=== PATIENT | male | born 1990 | race Caucasian/White ===

== ENCOUNTER 2017-08-04 08:31 | Emergency (ER) | payer BC ==
[2017-08-04 08:38] VITALS: O2SAT 90
[2017-08-04] MEDS ORDERED: IPRATROPIUM/ALBUTEROL 3 ML DEYVIAL IH ONE ×2 (08:44→08:49)
--- NOTE | 2017-08-04 08:47 | EDPHY ---
H & P Stated Complaint: Sob since this am Time Seen by Provider: 08/04/17 08:46 HPI/ROS: HPI: This is a 27-year-old male presents with Chief Complaint: Sob since this am Location: Chest Quality: Dyspnea Duration: 1-3 hours prior to arrival Signs and Symptoms: No fever, no cough, + wheezing, no chest pain, no lower extremity edema, no palpitations, no sore throat, no body aches Timing: rapid onset Severity: moderate Context: Patient does not have official diagnosis of asthma but does use an albuterol inhaler approximately 3-4 times per month presents with complaints of rapid onset of shortness of breath that worsened while out work this morning. He reports that he believes that he is allergic to hemp and he works at a [employer]. Complains of not being able to catch his breath and wheezing. Denies any fever, chills, cough, body aches, chest pain, lower extremity edema. + tobacco user. Patient ran out of his inhaler several weeks ago. No PCP. Denies any upper respiratory symptoms. Modifying Factors: None Comment: ROS: see HPI Constitutional: No fever, no chills, no weight loss Eyes: No blurred vision Respiratory: + shortness of breath, no cough Cardiovascular: No chest pain Gastrointestinal: No nausea, no vomiting, no diarrhea Genitourinary: No dysuria Extremities: No myalgias Neurologic: No weakness, no numbness Skin: No rashes Hematologic: No bruising, no bleeding MEDICAL/SURGICAL/SOCIAL HISTORY: Medical history: Generally healthy. Does not take any regular medications. Surgical history: Denies Social history: CONSTITUTIONAL: Well-developed well-nourished young adult white male, awake and alert, no obvious distress HEENT: Atraumatic and normocephalic, PERRL, EOMI. Tympanic membranes clear. Oropharynx clear, no exudate and moist pink mucosa. Airway patent. No lymphadenopathy. No meningismus. Cardiovascular: Normal S1/S2, tachycardia, regular rhythm, without murmur rub or gallop. PULMONARY/CHEST: Symmetrical and nontender. Expiratory wheezes throughout. Tachypnea. pursed lip breathing. Fair air movement. + accessory muscle usage. ABDOMEN: Soft, nondistended, nontender, no rebound, no guarding, no peritoneal signs, no masses or organomegaly. No CVAT. EXTREMITIES: 2/2 pulses, strength 5/5, no deformities, no clubbing, no cyanosis or edema. No calf tenderness or swelling. NEUROLOGICAL: no focal neuro deficits. GCS 15. SKIN: Warm and dry, no erythema. no rash. Good capillary refill. Source: Patient Exam Limitations: No limitations - Personal History Current Tetanus/Diphtheria Vaccine: Unsure Current Tetanus Diphtheria and Acellular Pertussis (TDAP): Unsure - Medical/Surgical History Hx Asthma: No Hx Chronic Respiratory Disease: No Hx Diabetes: No Hx Cardiac Disease: No Hx Renal Disease: No Hx Cirrhosis: No Hx Alcoholism: No Hx HIV/AIDS: No Hx Splenectomy or Spleen Trauma: No Other PMH: denier - Social History Smoking Status: Current every day smoker Constitutional: Initial Vital Signs Temperature (C) 36.2 C 08/04/17 08:34 Heart Rate 118 H 08/04/17 08:34 Respiratory Rate 24 H 08/04/17 08:34 Blood Pressure 127/83 H 08/04/17 08:34 O2 Sat (%) 90 L 08/04/17 08:34 O2 Delivery Mode Room Air Allergies/Adverse Reactions: No Known Allergies Allergy (Unverified 08/04/17 08:33) Home Medications: Medication Instructions Recorded Albuterol Sulfate [Proair Hfa] 1 - 2 puffs IH Q4 PRN #1 hfa.aer.ad 08/04/17 predniSONE 50 mg PO DAILY #5 tablet 08/04/17 Medical Decision Making ED Course/Re-evaluation: O2 sats upon arrival are 90% on room air. Given a DuoNeb with improved aeration and O2 sats up to 96 and 98% on room air. Afebrile. No indication of pneumonia/influenza. Chest x-ray not indicated. Given p.o. prednisone 60 mg and another DuoNeb. 0925: Reassessed patient; O2 sats 98-99% on room air. Wheezes have resolved and no shortness of breath. Patient will be discharged home with an albuterol inhaler refill and 5 days of prednisone. Referral to [facility] to establish care. This patient was seen under the supervision of my secondary supervising physician. I evaluated care for this patient independently. Differential Diagnosis: Differential diagnosis includes but is not limited to upper respiratory infection, asthma exacerbation, pulmonary embolism, influenza. - Data Points Medications Given: Discontinued Medications Albuterol/Ipratropium (Duoneb) 3 ml IH EDNOW ONE Stop: 08/04/17 08:45 Last Admin: 08/04/17 08:48 Dose: 3 ml Albuterol/Ipratropium (Duoneb) 3 ml IH EDNOW ONE Stop: 08/04/17 08:50 Last Admin: 08/04/17 09:01 Dose: 3 ml Prednisone (Prednisone) 60 mg PO EDNOW ONE Stop: 08/04/17 08:50 Last Admin: 08/04/17 08:59 Dose: 60 mg Departure - Departure Disposition: Home, Routine, Self-Care Clinical Impression: Exacerbation of asthma Qualifiers: Asthma severity: mild Asthma persistence: intermittent Qualified Code(s): J45.21 - Mild intermittent asthma with (acute) exacerbation Condition: Good Instructions: Asthma (ED), How to Use a Nebulizer (ED), Wheezing (ED) Additional Instructions: Stop smoking cigarettes. Consume a minimum of 8-10 glasses of water or electrolyte fluid replacement drinks that include Gatorade, Powerade, Pedialyte. Please establish care at the [facility]. Referrals: [facility],. [Clinic] - As per Instructions Prescriptions: Albuterol Sulfate [Proair Hfa] 1 - 2 puffs IH Q4 PRN #1 hfa.aer.ad PRN Reason: Short Of Breath/Dyspnea predniSONE 50 mg PO DAILY #5 tablet
[2017-08-04] MEDS ORDERED: predniSONE 20 MG TAB PO ONE (08:49)
[2017-08-04 09:38] VITALS: BP 122/88; PULSE 117; RESP 18; TEMP 98.4
== END 2017-08-04 09:34 | disposition home or self-care (01) ==
DX: J45.21 Mild intermittent asthma with (acute) exacerbation (principal); F17.200 Nicotine dependence, unspecified, uncomplicated
CPT/HCPCS: J7512

== ENCOUNTER 2018-04-08 06:33 | Emergency (ER) | payer BC ==
[2018-04-08] MEDS ORDERED: IPRATROPIUM/ALBUTEROL 3 ML DEYVIAL IH ONE (06:46)
[2018-04-08] MEDS ORDERED: predniSONE 20 MG TAB PO ONE (06:57)
--- NOTE | 2018-04-08 06:57 | EDPHY ---
H & P Stated Complaint: WHEEZING, SEASONAL ALLERGIES TO [employer] AND WORKS IN A [employer] Time Seen by Provider: 04/08/18 06:49 HPI/ROS: CHIEF COMPLAINT: Asthma attack HISTORY OF PRESENT ILLNESS: The patient presents the ED with an asthma attack began earlier today. He denies fever or productive cough. The patient reportedly ran out of his albuterol inhaler. The patient is a smoker. The patient denies any asymmetric calf pain or swelling. He denies pleuritic chest pain. He denies abdominal pain or additional acute complaints. The patient reports his dyspnea is mild in nature. REVIEW OF SYSTEMS: A comprehensive 10 point review of systems is otherwise negative aside from elements mentioned in the history of present illness. Source: Patient Exam Limitations: No limitations - Personal History Current Tetanus/Diphtheria Vaccine: Yes Current Tetanus Diphtheria and Acellular Pertussis (TDAP): Yes - Medical/Surgical History Hx Asthma: Yes Hx Chronic Respiratory Disease: No Hx Diabetes: No Hx Cardiac Disease: No Hx Renal Disease: No Hx Cirrhosis: No Hx Alcoholism: No Hx HIV/AIDS: No Hx Splenectomy or Spleen Trauma: No Other PMH: denier - Social History Smoking Status: Current every day smoker - Physical Exam Exam: General Appearance: Alert, no distress Eyes: Pupils equal and round no pallor or injection ENT, Mouth: Mucous membranes moist Respiratory: Expiratory wheezing, no tachypnea Cardiovascular: Regular rate and rhythm Gastrointestinal: Abdomen is soft and nontender, no masses, bowel sounds normal Neurological: 5/5 strength all 4 extremities Skin: Warm and dry, no rashes Musculoskeletal: Neck is supple nontender Extremities: symmetrical, full range of motion Constitutional: Initial Vital Signs Temperature (C) 37.5 C 04/08/18 06:38 Heart Rate 115 H 04/08/18 06:38 Respiratory Rate 22 H 04/08/18 06:38 Blood Pressure 124/77 H 04/08/18 06:38 O2 Sat (%) 94 04/08/18 06:38 O2 Delivery Mode Room Air Allergies/Adverse Reactions: No Known Allergies Allergy (Unverified 04/08/18 06:40) Home Medications: Medication Instructions Recorded Albuterol Sulfate [Proair Hfa] 1 - 2 puffs IH Q4 PRN #1 hfa.aer.ad 08/04/17 Albuterol [Proventil Inhaler HFA 1 - 2 puffs IH Q4H #2 mdi 04/08/18 (*)] predniSONE [prednisone 20mg (RX)] 3 tab PO DAILY #15 tab 04/08/18 Medical Decision Making ED Course/Re-evaluation: The patient was treated with 60 mg oral prednisone, a DuoNeb and 2 albuterol breathing treatments. Re-evaluated patient at 7:30 a.m. And his wheezing has resolved. He has no hypoxemia. The patient would like to discharged home. Patient will be given a prescription for prednisone and albuterol. He is discharged home with customary aftercare instructions and return precautions. Differential Diagnosis: Differential diagnosis considered includes asthma, bronchitis, pneumonia - Data Points Medications Given: Discontinued Medications Albuterol (Proventil Neb) 3 ml IH EDNOW ONE Stop: 04/08/18 06:59 Last Admin: 04/08/18 07:03 Dose: 3 ml Albuterol/Ipratropium (Duoneb) 3 ml IH EDNOW ONE Stop: 04/08/18 06:47 Last Admin: 04/08/18 06:51 Dose: 3 ml Prednisone (Prednisone) 60 mg PO EDNOW ONE Stop: 04/08/18 06:58 Last Admin: 04/08/18 07:02 Dose: 60 mg Departure - Departure Disposition: Home, Routine, Self-Care Clinical Impression: Exacerbation of asthma Condition: Good Instructions: Asthma (ED) Additional Instructions: 1. Return to the ED for any worsening symptoms. 2. I do recommend establishing a relationship the primary care provider. You have been provided the contact information of our on-call primary care provider who would be happy to see you in follow-up. Referrals: Essence Valdez DO [Doctor of Osteopathy] - As per Instructions Prescriptions: Albuterol [Proventil Inhaler HFA (*)] 1 - 2 puffs IH Q4H #2 mdi predniSONE [prednisone 20mg (RX)] 3 tab PO DAILY #15 tab
[2018-04-08] MEDS ORDERED: ALBUTEROL 3 ML DEYVIAL IH ONE (06:58)
[2018-04-08 07:38] VITALS: BP 120/66
== END 2018-04-08 07:35 | disposition home or self-care (01) ==
DX: J45.901 Unspecified asthma with (acute) exacerbation (principal)
CPT/HCPCS: J7512; J7613